=== PATIENT | female | born 1995 | race Caucasian/White ===

== ENCOUNTER 2016-06-24 11:17 | Inpatient (IN) | payer MEDICAID ==
[~2016-06-24] VITALS: Ht 162.6 cm; Wt 64.4 kg
[2016-06-24] VITALS (77 sets, daily range): BP systolic 94–122; BP diastolic 43–91; PULSE 79–121; RESP 16–18; TEMP 98–99.1
[2016-06-24] MEDS ORDERED: LACTATED RINGER'S 1000 ML INJ 1,000 ML IV SCH (11:48)
[2016-06-24] MEDS ORDERED: DINOPROSTONE 10 MG VAG INSERT VAGINAL ONE (12:00)
[2016-06-24] MEDS ORDERED: SODIUM CHLORIDE 0.9% FLUSH 5 ML FLUSH IVF SCH (12:00)
[2016-06-24] MEDS ORDERED: SODIUM CHLORIDE 0.9% FLUSH 5 ML FLUSH IV FLUSH PRN (12:00)
[2016-06-24] MEDS ORDERED: SODIUM CHLORIDE 0.9% FLUSH 5 ML FLUSH IVF PRN (12:00)
[2016-06-24] MEDS ORDERED: ONDANSETRON HCL 4 MG/2 ML VIAL IV PRN (12:00)
[2016-06-24] MEDS ORDERED: SODIUM CHLORIDE 0.9% FLUSH 5 ML FLUSH IV FLUSH SCH (12:00)
[2016-06-24] MEDS ORDERED: ACETAMINOPHEN 325 MG TAB PO PRN ×2 (12:00→21:30)
[2016-06-24] MEDS ORDERED: ZANT150T2 PO (12:19)
[2016-06-24] MEDS ORDERED: PREN29TA PO (12:19)
[2016-06-24 13:32] LABS: AUTOMATED NEUTROPHIL # 7.6 TH/MM3 (1.8-7.7); BASOPHIL % 0.1 % (0.0-2.0); EOSINOPHIL % 0.3 % (0.0-4.0); HEMATOCRIT 33.1 % (35.0-46.0); HEMO FLAGS DIFF FINAL; LYMPH % 16.4 % (9.0-44.0); LYMPHOCYTE # 1.6 TH/MM3 (1.0-4.8); MEAN CORPUSCULAR HEMOGLOBIN 31.6 PG (27.0-34.0); MEAN CORPUSCULAR HGB CONC 34.3 % (32.0-36.0); MONO % 6.4 % (0.0-8.0); NEUT % 76.8 % (16.0-70.0); PLATELET COUNT 230 TH/MM3 (150-450); WHITE BLOOD COUNT 9.9 TH/MM3 (4.0-11.0)
[2016-06-24 13:46] LABS: BACTERIA, URINE MANY /hpf; BLOOD, URINE NEG (NEG); COMMENT (UR) CULTURE INDICATED; CULTURE IF INDICATED CULTURE INDICATED; GLUCOSE,URINE NEG (NEG); KETONE, URINE NEG (NEG); MUCUS URINE FEW /lpf (OCC); NITRITE,URINE NEG (NEG); PH, URINE 6.5 (5.0-8.5); SQUAMOUS EPITHELIAL CELL URINE 22 /hpf (0-5); URINE COLOR YELLOW (YELLW/STRAW)
[2016-06-24 14:30] LABS: BICARBONATE 24.6 MEQ/L (21.0-32.0); POTASSIUM 3.7 MEQ/L (3.5-5.1)
[2016-06-24] MEDS ORDERED: MEASLES, MUMPS, RUBELLA VACCINE 0.5 ML VIAL SQ ONE (16:00)
[2016-06-24] MEDS ORDERED: DIPHTH/TETANUS/ACEL PERTUSSIS (BOOSTER) 0.5 ML VIAL/PFS IM ONE (16:00)
[2016-06-24] MEDS ORDERED: ePHEDrine/NS 25 MG/5 ML SYR ONE (16:02)
[2016-06-24] MEDS ORDERED: fentaNYL 2MCG-BUPIV 0.125% INJ 100 ML ONE (16:02)
[2016-06-24] MEDS ORDERED: ePHEDrine/NS 25 MG/5 ML SYR IV PRN (17:45)
[2016-06-24] MEDS ORDERED: NO SYSTEM NARCOTICS XX PRN (17:45)
[2016-06-24] MEDS ORDERED: DO NOT ADMINISTER ANTICOAGULANTS XX PRN (17:45)
[2016-06-24] MEDS ORDERED: fentaNYL 2MCG-BUPIV 0.125% 100 ML EPIDURAL SCH (17:45)
--- NOTE | 2016-06-24 19:14 | MH ---
cc: ALEJANDRA VOGEL M.D. DATE OF ADMISSION 06/24/2016 DATE OF 1995 PATIENT HISTORY The patient is a 20-year-old female 2, para 1 who presented from the [facility] for routine ultrasound evaluation at 38 weeks and 1 day. The patient's estimated date of confinement is July 07, 2016. Ultrasound revealed low amniotic fluid. EVELIN measured 5.4 with a grade 3 placenta. Evaluation of the heart rate was normal with concerns for arrhythmia. Estimated weight was measured at 2699 grams, calculated an 5 pounds 15 ounces which was at the 19th percentile. Head circumference, abdominal circumference were all below the 10th percentile. Femur length was measured at 10 percentile. Due to concerns for questionable IUGR versus small for gestational age and decreased amniotic fluid volume, our recommendation is to proceed to labor and delivery for evaluation, potential admission for induction of labor. The patient's cervix was posterior, 50% and fingertip. PAST MEDICAL HISTORY The patient's past medical history, the patient denies any systemic or chronic disease states. ALLERGIES NO KNOWN DRUG ALLERGIES. MEDICATIONS Current medications include vitamins. OBSTETRICAL HISTORY Is notable for full-term delivery at 41 weeks in 2013 delivering a healthy female infant weighing 7 pounds 2 ounces. The patient had a spontaneous miscarriage in February of 2015. Current is unremarkable. The patient's group B strep status is negative. Blood type is O+. PHYSICAL EXAMINATION GENERAL: The patient is well-appearing, well-nourished female in no acute stress. VITAL SIGNS: Stable. Blood pressures 110/60. She weighs 142 pounds. heart rate was in the 150s and irregular. HEENT: The patient's HEENT shows no adenopathy or thyromegaly. Pupils were equally round, reactive to light. LUNGS: Were clear in all leal. HEART: Cardiac is regular rate and rhythm without murmur, rub or gallop. ABDOMEN: Gravid. Fundal height measures 35. PELVIC: Exam as stated above. Cervix was 50%, posterior, soft and finger tip. EXTREMITIES: Symmetrical, full range of motion. There is no cyanosis, clubbing or edema. ASSESSMENT The patient at 38 weeks and 1 day with questionable intrauterine growth restriction, grade 3 placenta, decreased amniotic fluid volume with an EVELIN of 5.4 and concerns for arrhythmia. PLAN The patient will be transferred to labor and delivery for evaluation and recommendation for induction of labor as indicated. MD VENESSA Stearns/KK /5:22 PM /5:59 PM
[2016-06-24] MEDS ORDERED: OXYTOCIN 30 UNITS-500ML PREMIX 500 ML ONE (20:58)
--- NOTE | 2016-06-24 21:28 | PD.OB.DELI ---
Anesthesia: Epidural Episiotomy: None Vaginal Delivery: Normal Presentation: Occiput anterior Nuchal Cord: None Delayed cord clamping (45 sec): Yes Infant: Female One Minute : 9 Five Minute : 9 Weight: 6 Infant Care: Suctioned, Spontaneous crying Placenta: Manual removal, Uterus explored + Laceration: No lacerations Additional Information ugly small placenta Alia Soria MD Jun 24, 2016 21:28
[2016-06-24] MEDS ORDERED: BENZOCAINE 20% TOPICAL SPRAY 60 ML CAN TOPICAL PRN (21:30)
[2016-06-24] MEDS ORDERED: WITCH HAZEL 50%/GLYCERIN 12.5% 40 PAD JAR TOPICAL PRN (21:30)
[2016-06-24] MEDS ORDERED: ONDANSETRON ODT 4 MG TAB PO PRN (21:30)
[2016-06-24] MEDS ORDERED: ZOLPIDEM TARTRATE 5 MG TAB PO PRN (21:30)
[2016-06-24] MEDS ORDERED: DOCUSATE SODIUM 50 MG/SENNA 8.6 MG TAB PO PRN (21:30)
[2016-06-24] MEDS ORDERED: SODIUM CHLORIDE 0.9% FLUSH 5 ML FLUSH IV PRN (21:30)
[2016-06-24] MEDS ORDERED: ALUMINUM/MAGNESIUM/SIMETH 30 ML CUP PO PRN (21:30)
[2016-06-25] VITALS: BP 100/61; PULSE 108; RESP 18; TEMP 98.4
[2016-06-25 08:00] VITALS: BP 105/59; PULSE 80; RESP 17; TEMP 98.7
--- NOTE | 2016-06-25 08:33 | HHI.OB ---
Subjective Post Day: 1 Remarks s/p at 37w2d, induced for IUGR/oligo Objective Vitals/I&O Vital Signs Date Time Temp Pulse Resp B/P Pulse Ox O2 Delivery O2 Flow Rate FiO2 06/25/16 00:00 98.4 06/25/16 00:00 108 18 100/61 06/24/16 23:15 95 104/69 06/24/16 23:00 107 105/63 06/24/16 22:45 100 106/67 06/24/16 22:30 91 105/64 06/24/16 22:15 94 118/66 06/24/16 22:00 95 111/67 06/24/16 21:45 92 115/65 06/24/16 21:45 18 06/24/16 21:30 18 06/24/16 21:30 98.0 06/24/16 21:30 98 112/66 06/24/16 21:29 101 116/65 06/24/16 21:10 113 06/24/16 21:05 121 06/24/16 21:00 116 06/24/16 21:00 114 104/91 06/24/16 20:55 118 06/24/16 20:50 117 06/24/16 20:45 107 06/24/16 20:45 114 122/74 06/24/16 20:30 110 117/70 06/24/16 20:30 103 06/24/16 20:25 102 06/24/16 20:20 108 06/24/16 20:15 92 06/24/16 20:15 98 103/64 06/24/16 20:10 94 06/24/16 20:05 101 06/24/16 20:00 90 06/24/16 20:00 99 100/54 06/24/16 20:00 99.1 06/24/16 19:50 94 06/24/16 19:45 96 06/24/16 19:45 93 104/52 06/24/16 19:40 88 06/24/16 19:35 96 06/24/16 19:30 87 99/54 06/24/16 19:30 93 06/24/16 19:25 88 06/24/16 19:20 93 06/24/16 19:15 100 18 111/70 06/24/16 19:15 116 06/24/16 19:10 102 06/24/16 19:05 104 06/24/16 19:00 109 06/24/16 19:00 105 112/68 06/24/16 18:45 18 110/65 06/24/16 18:45 111 110/65 06/24/16 18:45 97 06/24/16 18:40 99 06/24/16 18:35 100 06/24/16 18:30 99 06/24/16 18:30 16 06/24/16 18:30 113/65 06/24/16 18:30 105 06/24/16 18:25 95 06/24/16 18:20 97 06/24/16 18:15 16 95/57 06/24/16 18:15 100 06/24/16 18:15 104 06/24/16 18:10 100 06/24/16 18:05 105 06/24/16 18:00 96 06/24/16 18:00 100 06/24/16 18:00 16 107/56 06/24/16 17:55 98 06/24/16 17:50 105 06/24/16 17:45 79 06/24/16 17:45 83 94/47 06/24/16 17:40 87 06/24/16 17:35 95 06/24/16 17:30 97 95/43 06/24/16 17:30 95 06/24/16 17:25 94 06/24/16 17:20 93 06/24/16 17:15 16 06/24/16 17:15 109 06/24/16 17:15 99 112/56 06/24/16 17:10 100 06/24/16 17:05 93 06/24/16 17:00 98 06/24/16 17:00 100 109/61 06/24/16 16:55 102 06/24/16 16:55 101 103/55 06/24/16 16:50 107 102/49 06/24/16 16:50 112 06/24/16 16:48 107 107/47 06/24/16 16:46 101 104/57 06/24/16 16:45 107 06/24/16 16:44 103 100/50 06/24/16 16:42 107 104/44 3/13/17 16:40 95 06/24/16 16:40 95 108/47 06/24/16 16:38 100 106/51 06/24/16 16:36 103 108/56 06/24/16 16:35 94 06/24/16 16:34 103/51 06/24/16 16:34 95 06/24/16 16:32 99 06/24/16 16:32 96/52 06/24/16 16:30 94 108/56 06/24/16 16:30 94 06/24/16 16:29 93 105/56 06/24/16 16:27 92 104/57 06/24/16 15:45 98.7 06/24/16 15:38 95 102/57 06/24/16 15:37 18 06/24/16 14:45 97 16 106/60 06/24/16 13:40 92 16 110/66 06/24/16 12:57 94 107/53 Objective Remarks GENERAL: Well-nourished, well-developed patient. CARDIOVASCULAR: Regular rate and rhythm without murmurs, gallops, or rubs. RESPIRATORY: Breath sounds equal bilaterally. No accessory muscle use. ABDOMEN/GI: Abdomen soft, non-tender. Fundus: Firm, non-tender at umbilicus. GENITOURINARY: Light to moderate bleeding. EXTREMITIES: No cyanosis or edema, non-tender, without signs of DVT. Medications and IVs Current Medications Medications (Trade) Dose Ordered Sig/Babita Route Start Time Stop Time Status Last Admin Miscellaneous Information No systemic narcotics to be given except... UNSCH PRN XX 06/24/16 17:45 06/25/16 17:44 Miscellaneous Information DO NOT ADMINISTER ANY ANTICOAGUL... UNSCH PRN XX 06/24/16 17:45 06/25/16 17:44 (NS Flush) 2 ml BID IV 06/25/16 09:00 (NS Flush) 2 ml UNSCH PRN IV 06/24/16 21:30 (Tylenol) 650 mg Q4H PRN PO 06/24/16 21:30 (Motrin) 600 mg Q6H PRN PO 06/24/16 21:30 (Americaine 20% Top Spr) 1 spray Q4H PRN TOPICAL 06/24/16 21:30 (Tucks Pads) 1 applic QID PRN TOPICAL 06/24/16 21:30 (Nicole-Colace) 2 tab Q12H PRN PO 06/24/16 21:30 (Ambien) 5 mg HS PRN PO 06/24/16 21:30 (Mag-Al Plus Susp Liq) 15 ml Q8H PRN PO 06/24/16 21:30 (Zofran Odt) 4 mg Q6H PRN PO 06/24/16 21:30 Assessment/Plan Problem List: (1) IUGR (intrauterine growth restriction) affecting care of mother (2) Oligohydramnios in wilson in third trimester (3) (normal spontaneous vaginal delivery) Assessment and Plan PPD#1 doing well, continue supportive care routine d/c planning Discharge Planning routine, PPD#2 Aide Nowak MD Jun 25, 2016 08:33
[2016-06-25] MEDS ORDERED: SODIUM CHLORIDE 0.9% FLUSH 5 ML FLUSH IV SCH (09:00)
[2016-06-25] MEDS: IBUPROFEN 600 MG TAB PO PRN ×3 (09:12→21:43)
[2016-06-25 19:53] VITALS: BP 103/60; PULSE 85; RESP 18; TEMP 98.1
[2016-06-26 08:49] VITALS: BP 110/78; PULSE 88; RESP 20; TEMP 98
--- NOTE | 2016-06-26 09:00 | HHI.OB ---
Subjective Post Day: 2 Remarks no c/o Objective Vitals/I&O Vital Signs Date Time Temp Pulse Resp B/P Pulse Ox O2 Delivery O2 Flow Rate FiO2 06/26/16 08:49 98.0 88 20 110/78 06/25/16 19:53 98.1 06/25/16 19:53 85 18 103/60 Objective Remarks GENERAL: Well-nourished, well-developed patient. CARDIOVASCULAR: Regular rate and rhythm without murmurs, gallops, or rubs. RESPIRATORY: Breath sounds equal bilaterally. No accessory muscle use. ABDOMEN/GI: Abdomen soft, non-tender. Fundus: Firm, non-tender at umbilicus. GENITOURINARY: Light to moderate bleeding. EXTREMITIES: No cyanosis or edema, non-tender, without signs of DVT. Medications and IVs Current Medications Medications (Trade) Dose Ordered Sig/Babita Route Start Time Stop Time Status Last Admin (NS Flush) 2 ml BID IV 06/25/16 09:00 (NS Flush) 2 ml UNSCH PRN IV 06/24/16 21:30 (Tylenol) 650 mg Q4H PRN PO 06/24/16 21:30 (Motrin) 600 mg Q6H PRN PO 06/24/16 21:30 06/25/16 21:43 (Americaine 20% Top Spr) 1 spray Q4H PRN TOPICAL 06/24/16 21:30 (Tucks Pads) 1 applic QID PRN TOPICAL 06/24/16 21:30 (Nicole-Colace) 2 tab Q12H PRN PO 06/24/16 21:30 06/25/16 17:34 (Ambien) 5 mg HS PRN PO 06/24/16 21:30 (Mag-Al Plus Susp Liq) 15 ml Q8H PRN PO 06/24/16 21:30 (Zofran Odt) 4 mg Q6H PRN PO 06/24/16 21:30 Assessment/Plan Problem List: (1) IUGR (intrauterine growth restriction) affecting care of mother (2) Oligohydramnios in wilson in third trimester (3) (normal spontaneous vaginal delivery) Assessment and Plan PPD#2 doing well, continue supportive care routine d/c planning Discharge Planning routine, PPD#2 Attending Attestation pt seen by Meredith Ruiz MD Jun 26, 2016 09:00
[2016-06-26] MEDS ORDERED: IBUP-232 PO (09:01)
--- NOTE | 2016-06-26 09:01 | HHI.DCPOC ---
Discharge Care Plan Your Health Problems Are: Pelvic pain Report Symptoms to Your Doctor -Temperate above 100.5 degrees -Redness, of incision or excessive or foul smelling drainage -Unusual pain or calf pain -Increased vaginal bleeding -Painful or difficulty urinating -Feelings of extreme sadness or anxiety after 2 weeks Goals to Promote Your Health * To prevent worsening of your condition and complications * To maintain your health at the optimal level Directions to Meet Your Goals Take your medications as prescribed Follow your dietary instruction Follow activity as directed Ensure plenty of rest for recovery Drink fluids for hydration Keep your appointments as scheduled Take your immunizations and boosters as scheduled If your symptoms worsen call your PCP, if no PCP go to Urgent Care Center or Emergency Room Smoking is Dangerous to Your Health. Avoid second hand smoke Call the 24-hour crisis hotline for domestic abuse at Meredith Roman MD Jun 26, 2016 09:01
== END 2016-06-26 12:18 | disposition home or self-care (01) | DRG 767 ==
LOC: EDSTATUS 11:26 → H2EB 11:29 → H1EA 23:40
PROVIDERS: ADMIT Obstetrics & Gynecology; ATTEND Obstetrics & Gynecology
PROC: 10E0XZZ Delivery of Products of Conception, External Approach (ICD-10-PCS; principal; 2016-06-24)
PROC: 10D17ZZ Extraction of Products of Conception, Retained, Via Natural or Artificial Opening (ICD-10-PCS; 2016-06-24)
PROC: 3E0P7GC Introduction of Other Therapeutic Substance into Female Reproductive, Via Natural or Artificial Opening (ICD-10-PCS; 2016-06-24)
PROC: 00HU33Z Insertion of Infusion Device into Spinal Canal, Percutaneous Approach (ICD-10-PCS; 2016-06-24)
PROC: 3E0R3CZ (ICD-10-PCS; 2016-06-24)
DX: O41.03X0 Oligohydramnios, third trimester, not applicable or unspecified (principal); O36.5930 Maternal care for other known or suspected poor fetal growth, third trimester, not applicable or unspecified; O73.0 Retained placenta without hemorrhage; Z3A.38 38 weeks gestation of pregnancy; Z37.0 Single live birth
CPT/HCPCS: 59025; 80048; 81001; 85025; 86900; 86901; 87086; J2590; J7120

== ENCOUNTER 2016-06-29 10:55 | Emergency (ER) | payer MEDICAID ==
[~2016-06-29] VITALS: Ht 162.6 cm; Wt 65.0 kg
[~2016-06-29 10:55] MED LIST: IBUP-232 PO; PREN29TA PO; ZANT150T2 PO
[2016-06-29 10:59] VITALS: BP 127/72; PULSE 103; RESP 18; TEMP 98.2; O2SAT 98
[2016-06-29] MEDS ORDERED: HYDR-3533 PO (11:12)
--- NOTE | 2016-06-29 11:22 | PD ---
HPI Chief Complaint: Related Problem Time Seen by Provider: 11:31 Travel History International Travel<30 days: No Contact w/Intl Traveler<30days: No Traveled to known affect area: No History of Present Illness HPI 20-year-old female who is 6 days, presents the emergency department with worsening headache. Patient did have a epidural for her delivery, and is felt to have post-epidural headache. This is the patient's second baby, and the baby is doing well. Patient is breast-feeding. Patient states she was given ibuprofen here after her delivery, which has not been helping any. She went flying the hospital at 2 this morning, and no labs were done or IV fluids, and the patient was given a prescription for Lortab she has not taken. Patient states her headache now is an 8/10. She denies fever, chills, nausea, vomiting, or other constitutional symptoms. She describes as a global headache, worse with any exertion. PFSH Past Medical History Medical History: Denies Significant Hx Tetanus Vaccination: < 5 Years Influenza Vaccination: Yes ?: Not LMP: 10/01/15 : 3 Para: 2 Miscarriage: 1 : 0 Past Surgical History Surgical History: No Previous Surgery Social History Alcohol Use: No Tobacco Use: No Substance Use: No Allergies-Medications (Allergen,Severity, Reaction): Coded Allergies: No Known Allergies (Unverified , 06/29/16) Reported Meds & Prescriptions Reported Meds & Active Scripts Active Ibuprofen 600 Mg Tab 600 Mg PO Q6H PRN Reported Lortab (Hydrocodone-Acetaminophen) 5-325 Mg Tab 1 Tab PO Q6H PRN Zantac (Ranitidine HCl) 150 Mg Tab 150 Mg PO DAILY Review of Systems Except as stated in HPI: all other systems reviewed are Neg General / Constitutional: No: Fever Eyes: No: Visual changes HENT: No: Headaches Cardiovascular: No: Chest Pain or Discomfort Respiratory: No: Shortness of Breath Gastrointestinal: No: Abdominal Pain Genitourinary: No: Dysuria Musculoskeletal: No: Pain Skin: No Rash Neurologic: No: Weakness Psychiatric: No: Depression Endocrine: No: Polydipsia Hematologic/Lymphatic: No: Easy Bruising Physical Exam Narrative GENERAL: Patient appears in mild distress. SKIN: Warm and dry. Normal color. Normal turgor. HEAD: Atraumatic. Normocephalic. EYES: Pupils equal and round. No scleral icterus. No injection or drainage. ENT: No nasal bleeding or discharge. Mucous membranes pink and moist. Pharynx is normal. NECK: Trachea midline. Neck is supple. Negative Lhermitte sign. CARDIOVASCULAR: Regular rate and rhythm. RESPIRATORY: No accessory muscle use. Clear to auscultation. Breath sounds equal bilaterally. MUSCULOSKELETAL: Extremities without clubbing, cyanosis, or edema. No obvious deformities. NEUROLOGICAL: Awake and alert. No obvious cranial nerve deficits. Motor grossly within normal limits. Five out of 5 muscle strength in the arms and legs. Normal speech. PSYCHIATRIC: Appropriate mood and affect; insight and judgment normal. Data Data Last Documented VS Vital Signs Date Time Temp Pulse Resp B/P Pulse Ox O2 Delivery O2 Flow Rate FiO2 06/29/16 16:35 79 16 114/71 98 Room Air 06/29/16 10:59 98.2 Orders Complete Blood Count With Diff (06/29/16 11:27) Comprehensive Metabolic Panel (06/29/16 11:27) Ecg Monitoring (06/29/16 11:27) Iv Access Insert/Monitor (06/29/16 11:27) Oximetry (06/29/16 11:27) Sodium Chloride 0.9% Flush (Ns Flush) (06/29/16 11:30) Ketorolac Inj (Toradol Inj) (06/29/16 11:30) Sodium Chlor 0.9% 1000 Ml Inj (Ns 1000 M (06/29/16 11:27) Diphenhydramine Inj (Benadryl Inj) (06/29/16 11:30) Urinalysis - C+S If Indicated (06/29/16 11:27) Morphine Inj (Morphine Inj) (06/29/16 11:30) Ondansetron Inj (Zofran Inj) (06/29/16 13:45) Anesthesia Consult (06/29/16 ) Labs Laboratory Tests Test 06/29/16 11:45 White Blood Count 11.0 TH/MM3 Red Blood Count 3.92 MIL/MM3 Hemoglobin 12.6 GM/DL Hematocrit 36.1 % Mean Corpuscular Volume 92.0 FL Mean Corpuscular Hemoglobin 32.2 PG Mean Corpuscular Hemoglobin 35.0 % Concent Red Cell Distribution Width 15.0 % Platelet Count 250 TH/MM3 Mean Platelet Volume 8.2 FL Neutrophils (%) (Auto) 83.6 % Lymphocytes (%) (Auto) 11.4 % Monocytes (%) (Auto) 4.4 % Eosinophils (%) (Auto) 0.4 % Basophils (%) (Auto) 0.2 % Neutrophils # (Auto) 9.2 TH/MM3 Lymphocytes # (Auto) 1.3 TH/MM3 Monocytes # (Auto) 0.5 TH/MM3 Eosinophils # (Auto) 0.0 TH/MM3 Basophils # (Auto) 0.0 TH/MM3 CBC Comment DIFF FINAL Differential Comment Sodium Level 141 MEQ/L Potassium Level 3.6 MEQ/L Chloride Level 107 MEQ/L Carbon Dioxide Level 26.3 MEQ/L Anion Gap 8 MEQ/L Blood Urea Nitrogen 15 MG/DL Creatinine 0.56 MG/DL Estimat Glomerular Filtration 137 ML/MIN Rate Random Glucose 97 MG/DL Calcium Level 8.7 MG/DL Total Bilirubin 0.3 MG/DL Aspartate Amino Transf 14 U/L (AST/SGOT) Alanine Aminotransferase 20 U/L (ALT/SGPT) Alkaline Phosphatase 138 U/L Total Protein 7.0 GM/DL Albumin 2.9 GM/DL MDM Medical Decision Making Medical Screen Exam Complete: Yes Emergency Medical Condition: Yes Differential Diagnosis 6 days . Headache. Probable right from recent epidural. Narrative Course Patient is medically stable at time of exam. Patient discussed with Dr. Madrid. Labs are checked including CBC, CMP, and urinalysis. IV access is obtained patient is given 25 mg Benadryl IV, as well as 30 mg Toradol IV, as well as 2 mg morphine IV. Patient is given 1000 mL was normal saline bolus. Patient is observed for 2 hours. Continues to have unbearable headache upon sitting. Call was placed to anesthesia and the patient is discussed with Dr. Leonard. He agrees to do a blood patch for the patient, and requested the patient removed to PACU to expedite this process. Consult to anesthesia is placed. Blood patch is placed and patient is observed and felt much improved. Patient to remain on bedrest for the next 24 hours. Patient should push fluids and take ibuprofen and Lortab as needed. Patient follow with her primary care physician or return to emergency Department with worsening symptoms as necessary. Diagnosis Primary Impression: Headache following lumbar puncture Patient Instructions: Epidural Blood Patch (DC), General Instructions Additional Instructions: Patient to remain on bedrest for the next 24 hours. Patient should push fluids and take ibuprofen and Lortab as needed. Patient follow with her primary care physician or return to emergency Department with worsening symptoms as necessary. Med/Other Pt SpecificInfo: No Change to Meds Disposition: 01 DISCHARGE HOME Condition: Stable Dayo Lambert Jun 29, 2016 11:22
[2016-06-29] MEDS ORDERED: SODIUM CHLOR 0.9% 1000 ML INJ 1,000 ML IV ONE (11:27)
[2016-06-29] MEDS ORDERED: diphenhydrAMINE HCL 50 MG/ML VIAL IV PUSH ONE (11:30)
[2016-06-29] MEDS ORDERED: KETOROLAC TROMETHAMINE 30 MG/ML (IVP) VIAL IVP ONE (11:30)
[2016-06-29] MEDS ORDERED: SODIUM CHLORIDE 0.9% FLUSH 5 ML FLUSH IVF PRN (11:30)
[2016-06-29] MEDS ORDERED: MORPHINE SULFATE 4 MG/ML INJ IV PUSH ONE (11:30)
[2016-06-29 12:00] LABS: AUTOMATED NEUTROPHIL # 9.2 TH/MM3 (1.8-7.7); BASOPHIL % 0.2 % (0.0-2.0); EOSINOPHIL % 0.4 % (0.0-4.0); HEMATOCRIT 36.1 % (35.0-46.0); HEMO FLAGS DIFF FINAL; LYMPH % 11.4 % (9.0-44.0); LYMPHOCYTE # 1.3 TH/MM3 (1.0-4.8); MEAN CORPUSCULAR HEMOGLOBIN 32.2 PG (27.0-34.0); MONO % 4.4 % (0.0-8.0); NEUT % 83.6 % (16.0-70.0); PLATELET COUNT 250 TH/MM3 (150-450); RED BLOOD COUNT 3.92 MIL/MM3 (4.00-5.30)
[2016-06-29 12:21] LABS: ANION GAP 8 MEQ/L (5-15); AST (GOT) 14 U/L (15-37); BICARBONATE 26.3 MEQ/L (21.0-32.0); BLOOD UREA NITROGEN 15 MG/DL (7-18); CHLORIDE 107 MEQ/L (98-107); GLOMERULAR FILTRATION RATE 137 ML/MIN (>89); POTASSIUM 3.6 MEQ/L (3.5-5.1); SODIUM (NA) 141 MEQ/L (136-145)
[2016-06-29 12:24] LABS: ALKALINE PHOSPHATASE 138 U/L (45-117); ALT (GPT) 20 U/L (10-53); TOTAL BILIRUBIN ADULT 0.3 MG/DL (0.2-1.0)
[2016-06-29] MEDS ORDERED: ONDANSETRON HCL 4 MG/2 ML VIAL IV PUSH ONE (13:45)
[2016-06-29 13:54] VITALS: BP 109/63; PULSE 70; RESP 16; O2SAT 98
[2016-06-29 16:35] VITALS: BP 114/71; PULSE 79; RESP 16; O2SAT 98
== END 2016-06-29 18:04 | disposition home or self-care (01) ==
LOC: NEPC 10:55
DX: O89.4 Spinal and epidural anesthesia-induced headache during the puerperium (principal)
CPT/HCPCS: 62273; 80053; 85025; 96361; 96374; 96375; 99284; J1200; J1885; J2270; J2405; J7030